=== PATIENT | male | born 1985 | race Hispanic/Latino ===

== ENCOUNTER 2017-02-06 18:45 | Emergency (ER) | payer OTHER ==
[~2017-02-06] VITALS: Ht 170.2 cm; Wt 104.3 kg
[2017-02-06] MEDS ORDERED: IBUPROFEN200 M1 PO (19:45)
[2017-02-06] MEDS ORDERED: MELOXICAM15 MG PO (21:08)
== END 2017-02-06 21:18 | disposition home or self-care (01) ==
LOC: ED 18:45
PROC: 2W3JX1Z Immobilization of Right Finger using Splint (ICD-10-PCS; principal; 2017-02-06)
DX: S63.656A Sprain of metacarpophalangeal joint of right little finger, initial encounter (principal); F17.200 Nicotine dependence, unspecified, uncomplicated; X58.XXXA Exposure to other specified factors, initial encounter
CPT/HCPCS: 29130; 73130; 99283

== ENCOUNTER 2020-07-22 19:05 | Emergency (ER) | payer OTHER ==
[~2020-07-22] VITALS: Ht 170.2 cm; Wt 104.3 kg
[~2020-07-22 19:05] MED LIST: IBUPROFEN200 M1 PO; MELOXICAM15 MG PO
[2020-07-22] MEDS ORDERED: BUPROPION HCL150 M2 PO (19:10)
--- NOTE | 2020-07-22 21:23 | EKG ---
[facility] [address] [facility] [place], [place] [address] Signed Sinus rhythm with sinus arrhythmia with occasional premature ventricular complexes Otherwise normal ECG No previous ECGs available Confirmed by CÉSAR TAVAREZ MD ([id number]) on 07/22/2020 9:23:42 PM Electronically Signed By: CÉSAR TAVAREZ MD 07/22/202122 PATIENT NAME: LAMONT VINCENT VIDHI Electrocardiogram DATE OF : 89 PHYSICIAN: CÉSAR TAVAREZ MD REPORT #: [id number] REPORT IS CONFIDENTIAL AND NOT TO BE RELEASED WITHOUT AUTHORIZATION
== END 2020-07-22 20:18 | disposition home or self-care (01) ==
LOC: ED 19:05
DX: R07.89 Other chest pain (principal); F17.200 Nicotine dependence, unspecified, uncomplicated
CPT/HCPCS: 71045; 80053; 83735; 84484; 85025; 93005; 93010; 99285-25

== ENCOUNTER 2020-08-05 12:47 | Emergency (ER) | payer OTHER ==
[~2020-08-05] VITALS: Ht 170.2 cm; Wt 104.3 kg
[~2020-08-05 12:47] MED LIST changes: +BUPROPION HCL150 M2 PO
--- OUTSIDE RECORDS SUMMARY | 2020-08-05 12:50 | XMS ---
PreManage Notification: LAMONT VINCENT Security Pediatric Intensive Physician Events No recent Security Events currently on file CRITERIA MET - [facility] - 2 Visits in 30 Days CARE PROVIDERS There are no care providers on record at this time. Gray has no Care Guidelines for this patient. [facility] MO[facility] NOTE: Visits indicate total known visits. ED/C VISIT TRACKING (12 MO.) [facility]2020 12[facility] COMPLAINT: - CHEST PAIN 07/22/2020 19:06 [facility] TYPE: Emergency COMPLAINT: - CHEST PAIN DIAGNOSES: - Other chest pain - Nicotine dependence, unspecified, uncomplicated INPATIENT VISIT TRACKING (12 MO.) No inpatient visits to display in this time frame [email or web address]
[2020-08-05] MEDS ORDERED: PROPRANOLOL HCL10 MG PO (13:03)
[2020-08-05] MEDS ORDERED: HYDROXYZINE HCL25 MG PO (13:03)
--- NOTE | 2020-08-05 21:26 | EKG ---
[facility] [address] [facility] [place] [address] Signed Sinus bradycardia with sinus arrhythmia Otherwise normal ECG When compared with ECG of 22-JUL-2020 19:11, premature ventricular complexes are no longer present QT has shortened Confirmed by CÉSAR TAVAREZ MD ([id number]) on 08/05/2020 9:26:27 PM Electronically Signed By: CÉSAR TAVAREZ MD 08/05/202125 PATIENT NAME: LAMONT VINCENT Electrocardiogram DATE OF : 89 PHYSICIAN: CÉSAR TAVAREZ MD REPORT #: [id number] REPORT IS CONFIDENTIAL AND NOT TO BE RELEASED WITHOUT AUTHORIZATION
== END 2020-08-05 14:30 | disposition home or self-care (01) ==
LOC: ED 12:47
DX: R07.89 Other chest pain (principal); M54.12 Radiculopathy, cervical region; I49.3 Ventricular premature depolarization; Z79.899 Other long term (current) drug therapy
CPT/HCPCS: 71045; 80053; 83735; 84484; 85025; 93005; 93010; 99285-25

== ENCOUNTER 2021-03-06 12:05 | Emergency (ER) | payer OTHER ==
[~2021-03-06] VITALS: Ht 170.2 cm; Wt 104.3 kg
[~2021-03-06 12:05] MED LIST changes: +HYDROXYZINE HCL25 MG PO; +PROPRANOLOL HCL10 MG PO
--- OUTSIDE RECORDS SUMMARY | 2021-03-06 12:12 | XMS ---
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 Gray has no Care Guidelines for this patient. Care History Medical/Surgical 08/06/2020 [facility] CALLED PATIENT- NO PCP LISTED- PHONE GOES STRAIGHT TO VM- NO VM BOX SET UP. - [facility] SENT NO PCP LETTER TO PATIENT. E.D. VISIT COUNT (12 MO.) 3 [facility]. TOTAL 3 NOTE: Visits indicate total known visits. ED/C VISIT TRACKING (12 MO.) 03/06/2021 12:05 [facility] TYPE: Emergency COMPLAINT: - COUGHING BLOOD, DIZZY, BODY ACHES, FATIGUE, SOB 08/05/2020 12:47 [facility] TYPE: Emergency COMPLAINT: - CHEST PAIN DIAGNOSES: - Chest pain, unspecified - Ventricular premature depolarization - Other jail (current) drug therapy - Other chest pain - Radiculopathy, cervical region 07/22/2020 19:06 [facility] TYPE: Emergency COMPLAINT: - CHEST PAIN DIAGNOSES: - Other chest pain - Nicotine dependence, unspecified, uncomplicated INPATIENT VISIT TRACKING (12 MO.) No inpatient visits to display in this time frame [email or web address]
[2021-03-06] MEDS ORDERED: ESCITALOPRAM OX10 MG PO (13:17)
== END 2021-03-06 14:26 | disposition home or self-care (01) ==
LOC: ED 12:05
DX: U07.1 COVID-19 (principal); J40 Bronchitis, not specified as acute or chronic
CPT/HCPCS: 71045; 99283-25